=== PATIENT | female | born 1965 | race Two or more races ===

== ENCOUNTER 2017-12-22 10:33 | Outpatient (CLI) | payer OTHER | END 2017-12-22 10:53 | disposition home or self-care (01) | LOC: MAMO-SONO 10:33 | DX: Z12.31 Encounter for screening mammogram for malignant neoplasm of breast (principal); N60.11 Diffuse cystic mastopathy of right breast ==

== ENCOUNTER 2018-01-18 06:31 | Day surgery (SDC) | payer OTHER ==
[2018-01-18] MEDS ORDERED: ULTRACET PO (11:56)
== END 2018-01-18 13:20 | disposition home or self-care (01) ==
LOC: CIR.AMB 06:31
DX: D23.72 Other benign neoplasm of skin of left lower limb, including hip (principal); D17.1 Benign lipomatous neoplasm of skin and subcutaneous tissue of trunk

== ENCOUNTER 2021-10-09 06:15 | Day surgery (SDC) | payer OTHER ==
[~2021-10-09] VITALS: Ht 162.6 cm; Wt 79.4 kg
[~2021-10-09 06:15] MED LIST: CRESTOR5 MG PO; DIOVAN40 MG PO; ULTRACET PO
[2021-10-09] MEDS ORDERED: COLACE100 MG PO (09:03)
[2021-10-09] MEDS ORDERED: ULTRACET PO (09:03)
== END 2021-10-09 12:25 | disposition home or self-care (01) ==
LOC: CIR.AMB 06:15
PROVIDERS: ATTEND Surgery
DX: C21.8 Malignant neoplasm of overlapping sites of rectum, anus and anal canal (principal); I10 Essential (primary) hypertension; E78.2 Mixed hyperlipidemia; Z86.16 Personal history of COVID-19

== ENCOUNTER 2021-10-30 07:09 | Day surgery (SDC) | payer OTHER ==
[~2021-10-30 07:09] MED LIST changes: +COLACE100 MG PO; +VALSARTAN-HCTZ1 EAC1 PO
[2021-10-30] MEDS ORDERED: ULTRACET PO (11:54)
== END 2021-10-30 13:20 | disposition home or self-care (01) ==
LOC: CIR.AMB 07:09
PROVIDERS: ATTEND Surgery
DX: C21.1 Malignant neoplasm of anal canal (principal); I10 Essential (primary) hypertension

== ENCOUNTER 2022-07-02 06:16 | Day surgery (SDC) | payer OTHER ==
[~2022-07-02] VITALS: Ht 162.6 cm; Wt 79.4 kg
[2022-07-02] MEDS ORDERED: TRAM1TAB98 PO (08:29)
== END 2022-07-02 10:35 | disposition home or self-care (01) ==
LOC: CIR.AMB 06:16
PROVIDERS: ATTEND Surgery
DX: C21.1 Malignant neoplasm of anal canal (principal); K62.5 Hemorrhage of anus and rectum; K64.1 Second degree hemorrhoids; Z20.822 Contact with and (suspected) exposure to COVID-19; I10 Essential (primary) hypertension